=== PATIENT | female | born 1935 | race Caucasian/White ===

== ENCOUNTER 2025-01-11 10:47 | Emergency (ER) | payer MEDICARE, OTHER | END 2025-01-11 12:02 | disposition home or self-care (01) | LOC: JP.ED 10:47 | DX: L25.9 Unspecified contact dermatitis, unspecified cause (principal); E78.00 Pure hypercholesterolemia, unspecified; Z79.899 Other long term (current) drug therapy; Z79.82 Long term (current) use of aspirin; Z88.2 Allergy status to sulfonamides; Z88.8 Allergy status to other drugs, medicaments and biological substances; Z91.048 Other nonmedicinal substance allergy status | CPT/HCPCS: 99282; 99283 ==